=== PATIENT | female | born 1985 | race Caucasian/White ===

== ENCOUNTER → 2018-12-04 | Outpatient (REF) | payer OTHER ==
[2018-12-04 15:55] LABS: BASO # 0.1 10^3/uL (0.0-0.2); BASO % 1.6 % (0.0-1.0); EOS # 0.1 10^3/uL (0.0-0.50); EOS % 1.6 % (0.0-3.0); HEMATOCRIT 42.5 % (36.0-47.0); HEMOGLOBIN 14.4 g/dl (12.0-15.5); LYMPH # 1.4 10^3/uL (1.5-4.5); LYMPH % 32.9 % (24.0-44.0); MEAN CORPUSCULAR HEMOGLOBIN 33.6 pg (27.0-33.0); MEAN CORPUSCULAR HGB CONC 33.9 g/dl (32.0-36.5); MEAN CORPUSCULAR VOLUME 99.3 fl (80.0-96.0); MONO # 0.6 10^3/uL (0.0-0.8); MONO % 14.3 % (0.0-5.0); NEUTROPHILS # 2.1 10^3/uL (1.8-7.7); NEUTROPHILS % 49.4 % (36.0-66.0); PLATELET COUNT, AUTOMATED 211 10^3/uL (150-450); RED BLOOD COUNT 4.28 10^6/uL (4.00-5.40); WHITE BLOOD COUNT 4.3 10^3/uL (4.0-10.0)
[2018-12-04 16:28] LABS: ALBUMIN 4.1 GM/DL (3.2-5.2); ALT/SGPT 105 U/L (12-78); BILIRUBIN,TOTAL 0.3 MG/DL (0.2-1.0); BLOOD UREA NITROGEN 21 MG/DL (7-18); CALCIUM LEVEL 8.9 MG/DL (8.5-10.1); CARBON DIOXIDE LEVEL 27 MEQ/L (21-32); CHLORIDE LEVEL 104 MEQ/L (98-107); CHOLESTEROL LEVEL 229 MG/DL (<200); CHOLESTEROL RISK RATIO 6.939 (<5); CREATININE FOR GFR 0.75 MG/DL (0.55-1.30); FREE T4 0.67 NG/DL (0.76-1.46); GLOMERULAR FILTRATION RATE > 60.0 (>60); GLUCOSE, FASTING 122 MG/DL (70-100); HDL CHOLESTEROL 33 MG/DL (>40); NON-HDL-C 196 MG/DL; POTASSIUM SERUM 4.1 MEQ/L (3.5-5.1); SODIUM LEVEL 137 MEQ/L (136-145); THYROID STIMULATING HORMONE 0.923 uIU/ML (0.358-3.740); TOTAL PROTEIN 6.9 GM/DL (6.4-8.2); TRIGLYCERIDES LEVEL 898 MG/DL (<150)
[2018-12-04 16:29] LABS: TOTAL 25(OH) VITAMIN D 9.8 NG/ML (30.0-100.0)
[2018-12-04 16:30] LABS: VITAMIN B12 LEVEL 354 PG/ML (247-911)
== END ==
LOC: M SFHCPLAZ 14:31
PROVIDERS: ATTEND Nurse Practitioner Family
DX: Z13.228 Encounter for screening for other metabolic disorders (principal); F10.11 Alcohol abuse, in remission; E55.9 Vitamin D deficiency, unspecified

== ENCOUNTER → 2018-12-20 | Outpatient (REF) | payer OTHER ==
[2018-12-20 14:17] LABS: ALBUMIN 3.8 GM/DL (3.2-5.2); ALT/SGPT 65 U/L (12-78); BILIRUBIN,TOTAL 0.3 MG/DL (0.2-1.0); BLOOD UREA NITROGEN 13 MG/DL (7-18); CALCIUM LEVEL 8.3 MG/DL (8.5-10.1); CARBON DIOXIDE LEVEL 30 MEQ/L (21-32); CHLORIDE LEVEL 105 MEQ/L (98-107); CHOLESTEROL LEVEL 207 MG/DL (<200); CHOLESTEROL RISK RATIO 4.312 (<5); FREE T4 0.79 NG/DL (0.76-1.46); GAMMA GLUTAMYLTRANSPEPTIDASE 625 U/L (5-55); GLOMERULAR FILTRATION RATE > 60.0 (>60); GLUCOSE, FASTING 76 MG/DL (70-100); HDL CHOLESTEROL 48 MG/DL (>40); NON-HDL-C 159 MG/DL; SODIUM LEVEL 141 MEQ/L (136-145); THYROID STIMULATING HORMONE 0.983 uIU/ML (0.358-3.740); TOTAL PROTEIN 7.1 GM/DL (6.4-8.2); TRIGLYCERIDES LEVEL 671 MG/DL (<150)
[2018-12-20 14:18] LABS: HEMOGLOBIN A1c 5.7 %
[2018-12-22 00:08] LABS: ANA (HEP2) Negative (.)
== END ==
LOC: M SFHCPLAZ 10:10
PROVIDERS: ATTEND Nurse Practitioner Family
DX: R94.5 Abnormal results of liver function studies (principal); E03.9 Hypothyroidism, unspecified; R73.01 Impaired fasting glucose; E78.5 Hyperlipidemia, unspecified

== ENCOUNTER → 2018-12-20 | Outpatient (CLI) | payer OTHER ==
--- NOTE | 2018-12-20 13:52 | REP ---
RIGHT UPPER QUADRANT SONOGRAPHY: HISTORY: Abnormal liver function studies. FINDINGS: Scanning through the right upper quadrant of the abdomen demonstrates mobile echogenic material in the dependent portion of the gallbladder visible with patient movement consistent with gravel-like material in the gallbladder. A phrygian cap is noted in the gallbladder. Common bile duct is normal measuring 0.4 cm in greatest diameter. No focal liver lesion is seen. Pancreas is unremarkable. There is no evidence of ascites or right renal abnormality. The right kidney measures 11.0 x 4.4 x 4.0 cm. IMPRESSION: Sludge versus gravel in the dependent portion of the gallbladder. Otherwise negative right upper quadrant sonography.
== END ==
LOC: M WHC 08:59
PROVIDERS: ATTEND Nurse Practitioner Family
DX: R93.2 Abnormal findings on diagnostic imaging of liver and biliary tract (principal)

== ENCOUNTER → 2019-01-25 | Outpatient (CLI) | payer OTHER ==
--- NOTE | 2019-01-25 16:34 | ECGEPIP ---
[facility] Test Date: 2019-01-25 Pat Name: ANTONIA LABA Department: Room: - Gender: Female Resourcing Consultant: TALYA : 1985 Requested By: Tesha Nance NPP-BC Order Number: [id number] Reading MD: Rao Ness Measurements Intervals [place] Rate: 79 P: 63 TN: 172 QRS: 71 QRSD: 90 T: 65 QT: 387 QTc: 444 Interpretive Statements SINUS RHYTHM Within normal limits. No prior ECG available for comparison at the time of interpretation. Electronically Signed on 01-25-2019 16:34:21 EDT by Rao Ness
== END ==
LOC: M EKG 11:36
PROVIDERS: ATTEND Nurse Practitioner Family
DX: R03.0 Elevated blood-pressure reading, without diagnosis of hypertension (principal); E78.00 Pure hypercholesterolemia, unspecified; F90.9 Attention-deficit hyperactivity disorder, unspecified type

== ENCOUNTER → 2019-05-21 | Outpatient (REF) | payer OTHER ==
[2019-05-21 12:53] LABS: ALBUMIN 3.9 GM/DL (3.2-5.2); ALT/SGPT 65 U/L (12-78); BILIRUBIN,TOTAL 0.3 MG/DL (0.2-1.0); BLOOD UREA NITROGEN 11 MG/DL (7-18); CALCIUM LEVEL 9.6 MG/DL (8.5-10.1); CARBON DIOXIDE LEVEL 25 MEQ/L (21-32); CHLORIDE LEVEL 107 MEQ/L (98-107); CHOLESTEROL LEVEL 192 MG/DL (<200); CHOLESTEROL RISK RATIO 4.363 (<5); CREATININE FOR GFR 0.74 MG/DL (0.55-1.30); GLOMERULAR FILTRATION RATE > 60.0 (>60); GLUCOSE, FASTING 100 MG/DL (70-100); HDL CHOLESTEROL 44 MG/DL (>40); LDL CHOLESTEROL 132 MG/DL (<100); NON-HDL-C 148 MG/DL; POTASSIUM SERUM 4.5 MEQ/L (3.5-5.1); SODIUM LEVEL 140 MEQ/L (136-145); TOTAL PROTEIN 6.9 GM/DL (6.4-8.2); TRIGLYCERIDES LEVEL 81 MG/DL (<150)
[2019-05-21 12:56] LABS: HEMOGLOBIN A1c 5.3 %
[2019-05-21 13:02] LABS: TOTAL 25(OH) VITAMIN D 26.7 NG/ML (30.0-100.0)
== END ==
LOC: M SFHCPLAZ 08:18
PROVIDERS: ATTEND Nurse Practitioner Family
DX: E78.5 Hyperlipidemia, unspecified (principal); R73.01 Impaired fasting glucose; E55.9 Vitamin D deficiency, unspecified